=== PATIENT | male | born 1940 | race Caucasian/White ===

== ENCOUNTER 2019-07-08 08:03 | Outpatient (REF) | payer MEDICARE, SELFPAY ==
[2019-07-08 13:20] LABS: Chol HDL Ratio 3.21 mg/dL (1.0-5.00); Cholesterol 125 mg/dL (0-200); Glucose 113 mg/dL (65-115); HDL Cholesterol 39 mg/dL (60-100); LDL Cholesterol Calculated 63 mg/dL (50-129); LDL HDL Ratio 1.62 RATIO (0.00-3.22); Triglycerides 117 mg/dL (0-150)
[2019-07-08 13:51] LABS: Estmated Average Glucose 134; Hemoglobin A1C 6.3 % (4.0-6.0)
== END 2019-07-08 08:04 | disposition home or self-care (01) ==
LOC: LAB 08:03
PROVIDERS: Family Provider Family Medicine; PCP Family Medicine; Visit Provider Dermatology
DX: Z01.89 Encounter for other specified special examinations (principal)
CPT/HCPCS: 80061; 82947; 83036